=== PATIENT | female | born 1990 | race Caucasian/White ===

== ENCOUNTER 2017-04-29 12:37 | Emergency (ER) | payer OTHER ==
[~2017-04-29] VITALS: Ht 160 cm; Wt 57.1 kg
[2017-04-29 13:10] VITALS: Ht 160 cm; Wt 57.1 kg
[2017-04-29 18:29] VITALS: BP 129/72
== END 2017-04-29 18:29 | disposition home or self-care (01) ==
LOC: ED 12:37
DX: N76.4 Abscess of vulva (principal); N39.0 Urinary tract infection, site not specified
CPT/HCPCS: J2001

== ENCOUNTER 2017-05-02 13:08 | Emergency (ER) | payer OTHER ==
[~2017-05-02] VITALS: Ht 160 cm; Wt 55.5 kg
[2017-05-02 13:21] VITALS: Ht 160 cm; Wt 55.5 kg
[2017-05-02 13:46] VITALS: BP 125/92
== END 2017-05-02 13:46 | disposition home or self-care (01) ==
LOC: ED 13:08
DX: Z48.817 Encounter for surgical aftercare following surgery on the skin and subcutaneous tissue (principal)

== ENCOUNTER 2017-06-27 09:16 | Emergency (ER) | payer OTHER ==
[~2017-06-27] VITALS: Ht 162.6 cm; Wt 57.1 kg
[2017-06-27 09:19] VITALS: Ht 162.6 cm; Wt 57.1 kg
[2017-06-27 10:57] VITALS: BP 129/87
== END 2017-06-27 10:58 | disposition home or self-care (01) ==
LOC: ED 09:16
DX: N75.1 Abscess of Bartholin's gland (principal)
CPT/HCPCS: J2001

== ENCOUNTER 2017-07-31 17:54 | Emergency (ER) | payer OTHER ==
[~2017-07-31] VITALS: Ht 160 cm; Wt 54.9 kg
[2017-07-31 18:05] VITALS: BP 144/84; Ht 160 cm; Wt 54.9 kg
== END 2017-07-31 18:34 | disposition home or self-care (01) ==
LOC: ED 17:54
DX: Z46.89 Encounter for fitting and adjustment of other specified devices (principal)

== ENCOUNTER 2018-08-28 14:12 | Emergency (ER) | payer OTHER ==
[~2018-08-28] VITALS: Ht 160 cm; Wt 48.5 kg
[2018-08-28 14:15] VITALS: BP 111/69; Ht 160 cm; Wt 48.5 kg
== END 2018-08-28 14:56 | disposition home or self-care (01) ==
LOC: ED 14:12
DX: N75.1 Abscess of Bartholin's gland (principal)